=== PATIENT | male | born 1935 | race Caucasian/White ===

== ENCOUNTER 2018-12-27 08:00 | Emergency (ER) | payer OTHER, MEDICARE ==
[~2018-12-27 08:00] MED LIST: Sterile Water Irrigation 250 ML BOT ONE
[2018-12-27] MEDS ORDERED: Adacel (T-DAP) 0.5 ML SYRINGE ONE (08:16)
[2018-12-27 08:21] LABS: #Basophils 0.1 thou/uL (0.0-0.2); #Eosinphils 0.2 thou/uL (0.0-0.7); #Lymphocytes 1.6 thou/uL (1.20-3.40); #Monocytes 0.8 thou/uL (0.11-0.59); %Basophils 0.8 % (0.0-1.0); %Eosinophils 1.9 % (0.0-10.0); %Lymphocytes 16.8 % (21.0-51.0); %Monocytes 7.7 % (0.0-10.0); %Neutrophils 72.8 % (42.0-75.0); Hemoglobin 9.7 g/dL (14.0-18.0); Mean Corpuscular HGB CONC 32.3 g/dL (32.0-36.0); Mean Corpuscular Hemoglobin 28.9 pg (27.0-31.0); Mean Corpuscular Volume 89.3 fL (78.0-98.0); Mean Platelet Volume 5.1 fL (7.4-10.4); Platelet Count 258 thou/uL (130-400); Red Blood Cell (RBC) Count 3.37 mill/uL (4.70-6.10); White Blood Cell (WBC) Count 9.7 thou/uL (4.8-10.8)
[2018-12-27 08:23] LABS: INR-International Normal Ratio 1.7; PTT 33.8 SEC (22.9-36.1); Prothrombin Time 19.7 SEC (12.0-14.7)
[2018-12-27 08:33] LABS: ALT (SGPT) 9 U/L (8-55); AST (SGOT) 11 U/L (5-34); Alkaline Phosphatase 51 U/L (40-150); Anion Gap 14 mmol/L (10-20); BUN (Urea Nitrogen) 27 mg/dL (8.4-25.7); Bilirubin, Total 0.6 mg/dL (0.2-1.2); Calc. Creatinine Clearance 0 mL/min (70-130); Calcium 9.3 mg/dL (7.8-10.44); Carbon Dioxide 23 mmol/L (23-31); Chloride 109 mmol/L (98-107); Estimated GFR-MDRD 46; Globulin 2.8 g/dL (2.4-3.5); Glucose 119 mg/dL (83-110); Potassium 4.4 mmol/L (3.5-5.1); Protein, Total 6.8 g/dL (5.8-8.1); Sodium 142 mmol/L (136-145)
--- NOTE | 2018-12-27 08:42 | CT ---
CT Brain WO Con History: [Fall. Injury.] Comparison: CT brain 2015 Findings: Large frontal scalp laceration. Underlying calvarium is intact. Moderate chronic microvascu lar ischemic changes. No acute hemorrhage or infarct. There is a dense calcification expected locatio n of the left M1 segment of the middle cerebral artery likely a partially calcified aneurysm. This an eurysm measures approximately 6 mm in size, similar to 2015. Impression: Large frontal scalp laceration. No acute posttraumatic intracranial sequelae. Left MCA ca lcified aneurysm has not increased in size from the comparison examination in 2014.
[2018-12-27] MEDS ORDERED: Lidocaine 1% 20 ML MDV ONE (08:48)
--- NOTE | 2018-12-27 09:00 | CT ---
CT CERVICAL SPINE NONCONTRAST: DATE: 12/27/2018. TIME: 8:17 a.m. HISTORY: An 83-year-old male status post acute cervical trauma from fall. FINDINGS: There are no jumped or perched facets. There is no evidence of acute fracture. The vertebral body h eights are maintained. There is no prevertebral soft tissue swelling. There are large, bulky flowin g, bridging osteophytes from C2-3 through C6-7 that anteriorly displace the posterior pharyngeal wall and hypopharynx, and could contribute to dysphagia. There is a small right pleural effusion. There is multilevel hypertrophic degenerative facet disease. Chronic grade I anterolisthesis of C5 on C6, and C6 on C7, are due to the facet osteoarthrosis. 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 Multilevel neural foraminal stenosis. IMPRESSION: 1. No evidence of acute fracture or acute traumatic subluxation. 2. Right pleural effusion. 3. DISH (diffuse idiopathic skeletal hyperostosis). jn [] POS: [facility]
== END 2018-12-27 10:28 | disposition home or self-care (01) ==
LOC: MADERS 08:00
DX: S01.01XA Laceration without foreign body of scalp, initial encounter (principal); D64.9 Anemia, unspecified; E11.9 Type 2 diabetes mellitus without complications; W17.89XA Other fall from one level to another, initial encounter
CPT/HCPCS: 12034; 36416; 70450; 72125; 80053; 84484; 85025; 85610; 85730; 90471; 90715; 93005; 94760; J2001